=== PATIENT | female | born 1985 | race Caucasian/White ===

== ENCOUNTER 2018-08-12 09:55 | Inpatient (IN) | payer OTHER, SELFPAY ==
[2018-08-12] VITALS (19 sets, daily range): BP systolic 101–128; BP diastolic 49–75; PULSE 75–91; RESP 14–20; TEMP 36.4–37.1; O2SAT 96–100; BMI 34.5
--- NOTE | 2018-08-12 | FALS_PTH ---
PATIENT: KASSI BILLY LOC: [facility] U#:[id number] AGE/SX: 33/F ROOM: 005 RE08/12/[address]: Dr. Keyana Herron MD : 1985 BED: 1 DIS: 08/14/2018 SPEC #: [id number] RECD: 08/12/18 14:38 STATUS: ALEE REDeyanira #: [id number] SHERRELL: 08/12/18 00:[address]: Keyana Herron DEPT: SURGICAL PATHOLOGY RECD BY: Kleber Burch ENTERED: 08/12/18 14:39 SP TYPE: FALL TUBES OTHR DR: Dr. Hever Barreto, Tissues: Fallopian tube Procedures: Surgery Specimen Level II HEADER OPERATION: Repeat section PRE-OP DIAGNOSIS: Repeat section TISSUE SUBMITTED: Fallopian tube MICROSCOPIC DIAGNOSIS Right and left fallopian tubes, bilateral salpingectomies: Complete segments of fallopian tubes with no pathologic change. AM:sp 08/13/18 MICROSCOPIC DESCRIPTION Slides are reviewed. GROSS DESCRIPTION Received is one container labeled with the patient's name and designated right tube string. Received are bilateral fallopian tubes including fimbrial end. The right tube is identified by the string. The right fallopian tube measures 6 cm in length and 0.6 cm in diameter. The left fallopian tube is present in 2 pieces and measures 5.5 cm in length and 0.6 cm in diameter. Fimbrial ends are normal in appearance. The right tube is also received in 2 pieces and tied with string. Sections reveal unremarkable cut surfaces. Slot Floor Person sections are submitted in 2 cassettes as follows: 1 - right fallopian tube, 2 - left fallopian tube. / YAIR:johana 08/12/18 TC: 5 CPT: 83001 x2
[2018-08-12] MEDS: Lactated Ringers 1,000 ML 999 ML IV (10:40)
[2018-08-12 10:58] LABS: Absolute Lymphocyte Count 1.69 X10^3/ul (0.83-4.51); Absolute Neutrophil Count 6.7 X10^3/uL (2.0-7.7); Basophil# 0.02 X10^3/uL; Basophil% 0.2 % (0-1); Eosinophil# 0.08 X10^3/uL; Eosinophils% 0.8 % (0-5); Hematocrit 39.4 % (37-47); Hemoglobin 12.7 g/dl (12.0-15.0); Lymphocyte # 1.69 X10^3/ul (4.0); Lymphocyte % 17.4 % (19-41); Mean Corp Hgb Conc 32.2 g/gl (32-36); Mean Corpuscular Hgb 30.4 pg (27.0-32.0); Mean Corpuscular Volume 94.3 fL (81-99); Mean Platelet Vol. 10.5 fl (6.2-12.0); Monocyte# 1.21 X10^3/uL; Monocyte% 12.5 % (0-10); Neutrophil # 6.66 X10^3/uL (2.7-7.7); Neutrophil % 68.8 % (47-70); Platelet Count 308 K/mm3 (150-450); RBC Distribution Width CV 13.9 % (11.6-14.6); RBC Distribution Width SD 47.3 fl (35.1-43.9); Red Blood Count 4.18 M/mm3 (4.2-5.4); White Blood Count 9.7 K/mm3 (4.4-11.0)
[2018-08-12 11:08] LABS: POSITIVE COUNT NO; POSITIVE DIFFERENTIAL NO; POSITIVE MORPHOLOGY NO
[2018-08-12] MEDS: Lactated Ringers 1,000 ML 150 ML IV (11:45)
[2018-08-12] MEDS: Cefazolin 2 GM in 0.9% Normal Saline 100 ML IV (11:57)
[2018-08-12] MEDS: Sodium Citrate/Citric Acid 30 ML UDC PO (11:57)
[2018-08-12] MEDS: Oxytocin 30 units/NS 500 ml 30 UNITS/500 ML IV.SOLN 167 UNITS IV (12:27)
[2018-08-12] MEDS: Ketorolac 30 MG/ML Syringe IV ×2 (12:52→18:34)
--- NOTE | 2018-08-12 13:04 | PCM.OB.CSR ---
Delivery Classification: Scheduled Final KIMBERLY: 08/19/18 Final KIMBERLY Source: US <20 weeks Gestational age: 39 Weeks and 0 Days Indications for : Repeat Elective , Desires elective sterilization Description of Procedure: [place] Seamer: Christi Grullon Procedure: Repeat low transverse section and bilateral salpingectomy Pre-op Diagnosis: Previous section desires repeat, 39 weeks , sterilization request Operative diagnosis: Same The patient was taken to the operating room. She was prepped and draped in the dorsal supine position with a leftward tilt. A Pfannenstiel skin incision was made approximately 2 cm above the symphysis pubis and carried through to underlying layer fascia with the scalpel. The fascia was incised incised in the midline and extended laterally with the Camacho scissors. The fascia was dissected off the rectus muscles with blunt and sharp dissection. The rectus muscles were in the midline and the peritoneum was entered bluntly. The peritoneal incision was stretched and the bladder blade was placed. The bladder flap was taken down with the Metzenbaum scissors and blunt dissection. The uterine incision was made in a low transverse fashion with the scalpel and extended superiorly and inferiorly with blunt dissection. The amniotic membranes were ruptured bluntly and clear amniotic fluid returned. The infant's head was brought to the incision in the flexed position and delivered without difficulty. The remainder of the was delivered with gentle traction and fundal pressure in the standard fashion. The mouth and nares were bulb suctioned. The cord was clamped and cut as the infant was stimulated. Cord clamping was delayed. The was handed off to the waiting nursing staff. The placenta was delivered with fundal massage and gentle traction in the standard fashion. The uterus was exteriorized and cleared of all clots and debris. The cervix was dilated with a ring forcep. The uterine incision was closed with #1 Vicryl in a running locked fashion. The incision was examined and was found to be hemostatic. Some Taz was placed over the incision. Attention was then turned to the tubes. The uterus was placed back into the peritoneal cavity and hemostasis was again confirmed. The right tube was identified and followed out to the fimbriated end. The insertion near the cornual edge of the uterus was clamped across with a Tena clamp. The antimesenteric portions of the tube were clamped across with Tena clamps. the tube was removed from the uterus and the broad ligament with Metzenbaum scissors. The pedicles were oversewn with 2-0 Vicryl sutures and plain gut free ties. The pedicles were hemostatic and the same procedure was performed on the contralateral side. Both sides were confirmed to be hemostatic. The rectus muscles were examined and any bleeding was Bovie cauterized. The parietal peritoneum and rectus muscles were closed en bloc with an 0 Vicryl running suture. The surgical teams outer gloves were then changed. The rectus fascia was examined and any bleeding was Bovie cauterized and the rectus fascia was closed with 1 Vicryl suture in a running standard fashion. The subcutaneous tissue was examining and any bleeding was Bovie cauterized. The skin was closed in a subcuticular fashion by me. I performed the entire procedure with assistance. All sponge, lap, and needle counts were correct. The patient was taken to her room for recovery in a stable condition. Amniotic Membrane Rupture Type: Artificial Amniotic Fluid Description: Clear Placenta Disposition: [facility] Specimen(s) sent to pathology: bilateral tubes Drain: Anderson to straight drain Cord Entanglement: None Cord Vessel Description: 3 Vessels Esitmated Blood Loss (ml): 800 Gender: Female (1 minute): 8 (5 minute): 9 Delayed cord clamping: Yes Pre-op Antibiotic Given: Ancef 2 grams IV x1 Complications: None - Admit VTE Documentation VTE Present on Admission: No VTE Mechan Device Prophylaxis: SCD's VTE Pharm Prophylaxis ordered?: No Reason prophylaxis not ordered:: Procedure Not Indicated
[2018-08-12 14:00] LABS: Pathology Specimen OB SEE PATHOLOGY REPORT
--- NOTE | 2018-08-12 19:32 | DCINST_ITS ---
Discharge Diet: No Restrictions Discharge Activity: Return to Normal Activity, May Not Drive - for 2 weeks, May not drive while taking narcotic pain medications., May Shower, May Take a Tub Bath - in 7 days. May resume sexual activity in: 4-6 weeks Lifting Restrictions: 20 pounds Additional Activity Instructions:: Nothing in the vagina for 4-6 weeks. You may return to work/school in 6 weeks. Call your doctor if your incision/area has: Continuous Slow Oozing, Sudden Increased Bleeding, Increased Pain/ Swelling, Increased Redness, Foul Smelling Discharge Call your doctor if you observe: Fever of 101 or Higher, Using more than one pad per hour - for 2 hours Suture Line Care: Avoid Pulling/Pushing, Avoid Pinching/Bending Cleanse incision/area with: Keep Dressing Clean & Dry Additional Instructions: If you experience any of the following, contact your healthcare provider. * Bleeding that soaks a pad every hour for 2 hours * Fever 100.4 or higher * Unrelieved incision or abdominal pain * Swelling, redness, discharge or bleeding from your incision or episiotomy site * Your incision begins to separate * Problems urinating (including inability to urinate or burning while urinating). * Visual changes * Severe headache * Flu-like symptoms * Pain or redness in one of both of your breasts * Pain, warmth, tenderness or swelling in your legs, especially the calf area * Frequent nausea and vomiting * Symptoms of depression or anxiety If you experience any of the following, call 911 or go to the nearest Emergency Room. * Chest pain * Problems breathing * Seizure activity * Partial or complete paralysis of a body part, slurred speech, weakness or drooping of the face, or a sudden inability to walk or hold your balance Allergies/Adverse Reactions: Allergies diphenhydramine Allergy (Verified 06/30/13 18:03) Other PT STATES REACTION MOUTH SWELLING Medications to take at Discharge Ibuprofen [Motrin] 600 mg PO Q6H PRN #60 tab 08/12/18 Oxycodone HCl/Acetaminophen [Percocet 5-325] 1 - 2 tab PO Q8 PRN 7 Days #28 tab 08/12/18 The following prescriptions were given: Oxycodone HCl/Acetaminophen [Percocet 5-325] 1 - 2 tab PO Q8 PRN 7 Days #28 tab PRN Reason: Moderate-Severe pain Ibuprofen [Motrin] 600 mg PO Q6H PRN #60 tab PRN Reason: Pain Follow-Up: Call to make an appointment with your doctor for an incision check in 1-2 weeks. You will also need a 6 week post- follow up appointment. Test results from this visit will be discussed in further detail at your follow- up appointment, if applicable. Please Follow Up With: Keyana Herron MD - Call to make an appointment for an incision check in 1-2 [phone] When: You will need a post check in 6 weeks. Primary Care Physician: Hever Barreto [Primary Care Provider] -
[2018-08-12] MEDS: Lactated Ringers 1,000 ML 100 ML IV (20:05)
--- NOTE | 2018-08-12 22:21 | NURSING ---
At 2200, pt up out of bed and walked in room with stand by assist.Pt then to bathroom and performed tu care. Pt tolerated activity well, then returned to bed.
[2018-08-12] MEDS: Senna/Docusate Sodium 1 Tablet PO (22:27)
[2018-08-13] VITALS (11 sets, daily range): BP systolic 95–110; BP diastolic 56–71; PULSE 75–104; RESP 16–18; TEMP 36.3–36.8; O2SAT 93–99
[2018-08-13] MEDS: Ketorolac 30 MG/ML Syringe IV ×5 (00:27→23:54)
[2018-08-13 06:20] LABS: Hematocrit 36.8 % (37-47); Hemoglobin 11.7 g/dl (12.0-15.0); Mean Corp Hgb Conc 31.8 g/gl (32-36); Mean Corpuscular Hgb 30.1 pg (27.0-32.0); Mean Corpuscular Volume 94.6 fL (81-99); Platelet Count 247 K/mm3 (150-450); RBC Distribution Width CV 13.8 % (11.6-14.6); RBC Distribution Width SD 47.4 fl (35.1-43.9); Red Blood Count 3.89 M/mm3 (4.2-5.4); White Blood Count 12.2 K/mm3 (4.4-11.0)
[2018-08-13 06:24] LABS: Scan Indicated on CBC? Y/N NO
[2018-08-13] MEDS: Senna/Docusate Sodium 1 Tablet PO ×2 (11:55→20:35)
[2018-08-13] MEDS: oxyCODONE 5 MG Tablet PO ×3 (11:55→20:34)
[2018-08-13] MEDS: 0.9% Saline Lock 10 ML Syringe IV ×3 (11:56→23:55)
--- NOTE | 2018-08-13 12:29 | PCM.PN.OB ---
Subjective: Pain mostly controlled - Physical Exam General: Alert, Oriented x3 Abdomen: Soft, Non Tender, Non-Distended - ff mid & below umb; inc - bandage c/d/i, stable old dried blood Extremities: No Calf Tenderness Vital Signs Temp Pulse Resp BP Pulse Ox 97.4 F L 104 H 16 110/62 98 08/13/18 10:00 08/13/18 10:00 08/13/18 10:00 08/13/18 10:00 08/13/18 10:00 Oxygen Delivery Method Room Air Weight: 182 lb 12.211 oz Body Mass Index (BMI) 34.5 Intake and Output for Last 24 Hours 08/11/18 08/12/18 08/13/18 23:59 23:59 23:59 Intake Total 2827 / 2827 2022 / 2022 Output Total 350 / 350 3150 / 3150 Balance 2477 / 2477 -1127 / -1127 Laboratory Tests Past 24 Hrs 08/13/18 06:02 WBC 12.2 H RBC 3.89 L Hgb 11.7 L Hct 36.8 L MCV 94.6 MCH 30.1 MCHC 31.8 L RDW 13.8 RDW Differential 47.4 H Plt Count 247 MPV 10.0 Medical Necessity - Tobacco Use Smoking Status: Never smoker Assessment/Plan POD #1 Routine care Heme - cbc reviewed GI - ADAT ID - AF
[2018-08-14] MEDS: oxyCODONE 5 MG Tablet PO ×3 (00:52→10:35)
[2018-08-14 02:40] VITALS: BP 107/54; PULSE 82; RESP 18; TEMP 36.6; O2SAT 97
[2018-08-14] MEDS: Ketorolac 30 MG/ML Syringe IV (06:10)
[2018-08-14] MEDS: 0.9% Saline Lock 10 ML Syringe IV (06:10)
--- NOTE | 2018-08-14 07:52 | PN.OBGYN_ITS ---
Subjective: Patient sitting up in bed, reporting that she desires discharge to home today. Patient notes that is going well. Denies any issues with ambulation or urination. Reports that pain is well controlled. Denies any other issues at this time. Objective: Nipples with cracks or blisters, no erythema noted Abdomen NT x 4 quadrants, FF @ 3FB midline Incisional dressing dry and intact, no exudate noted +2/4 reflexes in LE, no edema, no calf tenderness to palpation Scant rubra lochia - Physical Exam General: Alert, Oriented x3, Cooperative HEENT: Atraumatic, Normocephalic Neck: Supple Lungs: Normal air movement Cardiovascular: Regular rate, No murmurs Abdomen: Soft, Non Tender, Non-Distended Extremities: No edema, Capillary Refill Less than 3 Seconds Skin: No rashes, No breakdown Musculoskeletal: No Tenderness to Palpation of Joints or Extremities Neurological: Cranial nerves II-XII grossly intact Psych/Mental Status: Normal Affect, Appropriate, Alert and oriented to time, place, person, mood and affect Vital Signs Temp Pulse Resp BP Pulse Ox 97.8 F 82 18 107/54 L 97 08/14/18 02:40 08/14/18 02:40 08/14/18 02:40 08/14/18 02:40 08/14/18 02:40 Oxygen Delivery Method Room Air Weight: 182 lb 12.211 oz Body Mass Index (BMI) 34.5 Intake and Output for Last 24 Hours 08/12/18 08/13/18 08/14/18 23:59 23:59 23:59 Intake Total 2827 / 2827 2022 / 2022 Output Total 350 / 350 3150 / 3150 Balance 2477 / 2477 -1127 / -1127 Medical Necessity - Tobacco Use Smoking Status: Never smoker Assessment/Plan 33 y/o s/p Rpt LTCS x 4 with PPTL, POD #2 P: 1) Discharge patient to home pending discharge 2) RTC [facility] for incision check with Dr. Gopal CHAVEZ Sunday 08/19 Jannie PELAYO
[2018-08-14 08:42] VITALS: BP 104/63; PULSE 70; RESP 18; TEMP 36.8; O2SAT 98
[2018-08-14] MEDS: Senna/Docusate Sodium 1 Tablet PO (10:10)
== END 2018-08-14 12:20 | disposition home or self-care (01) | DRG 785 ==
PROVIDERS: Admitting Provider Obstetrics & Gynecology; Family Provider Family Medicine; PCP Family Medicine; Referring Provider Obstetrics & Gynecology; Visit Provider Obstetrics & Gynecology
PROC: 10D00Z1 Extraction of Products of Conception, Low, Open Approach (ICD-10-PCS; CPT 59514; principal; 2018-08-12 11:45)
DX: O34.211 Maternal care for low transverse scar from previous cesarean delivery (principal); Z30.2 Encounter for sterilization; Z3A.39 39 weeks gestation of pregnancy; Z37.0 Single live birth
CPT/HCPCS: 85025; 85027; 86850; 86900; 88302; 99218; J7120; A4216; G0378; J2405